=== PATIENT | male | born 1960 | race Hispanic/Latino ===

== ENCOUNTER → 2024-01-12 | Day surgery (SDC) | payer BC ==
[~2024-01-12] MED LIST: ATORVASTATIN CA20 MG PO; GLUCAGON FOR INJ 1 MG VIAL ONE; LIDOCAINE HCL 2% LOCAL INJ 5 ML SDV VIAL INJ ONE; METOPROLOL SUCC50 MG PO; OLMESARTAN-HCT1 EACH PO; OMEGA 3 1,0001 EACH PO; PHENYLEPHRINE HCL 1% 10 MG/ML VIAL ONE; PROPOFOL IV EMULSION 10 MG/ML 20 ML VIAL ONE; VITAMIN C1000 MG PO
[2024-01-12] MEDS: LACTATED RINGER'S 1,000 ML ONE (12:16)
[2024-01-12] MEDS: ONDANSETRON HCL INJ 2MG/ML 2ML 2 MG/ML VIAL ONE (12:16)
[2024-01-12 14:30] VITALS: TEMP 98.6
[2024-01-12 15:00] VITALS: BP 118/72; PULSE 95; RESP 16; O2SAT 95
== END | disposition home or self-care (01) ==
LOC: OR 11:26
PROVIDERS: ATTEND Internal Medicine Gastroenterology
DX: Z12.11 Encounter for screening for malignant neoplasm of colon (principal); D12.3 Benign neoplasm of transverse colon; D12.5 Benign neoplasm of sigmoid colon; K62.1 Rectal polyp; K64.8 Other hemorrhoids; Z71.3 Dietary counseling and surveillance; I10 Essential (primary) hypertension; Z71.89 Other specified counseling; E66.01 Morbid (severe) obesity due to excess calories; E78.5 Hyperlipidemia, unspecified; F41.9 Anxiety disorder, unspecified; Z01.810 Encounter for preprocedural cardiovascular examination; Z79.899 Other long term (current) drug therapy; Z68.31 Body mass index [BMI] 31.0-31.9, adult
CPT/HCPCS: 45380; 45385; 93005; J1610; J2003; J2371; J2405; J2704; J7121; 45378